=== PATIENT | male | born 1965 | race Caucasian/White ===

== ENCOUNTER → 2020-03-08 | Outpatient (CLI) | payer OTHER ==
--- NOTE | 2020-03-08 10:41 | PFTRPT ---
Visit Date: 03/08/2020 Second ID: [id number] Referring Doctor: Judy Mao Height: 72.00 Inches Weight: 239.00 Lbs BSA: 2.30 Diagnosis: J98.01 TECHNIQUE: Pre- and post-bronchodilator study of excellent technical quality. FINDINGS: Forced vital capacity is normal. FEV1 is in proportion of obstructive index; therefore, normal. Expiratory limit within the flow-volume loop is normal. No significant bronchodilator response identified. Total lung capacity normal. Residual volume is generally in proportion. Diffusing capacity is normal. Airway resistance and conductance are normal. No hemoglobin is available for correction. IMPRESSION: Essentially normal study. MTDD
== END ==
LOC: M CARPUL 09:57
PROVIDERS: ATTEND Registered Nurse
DX: J98.01 Acute bronchospasm (principal)

== ENCOUNTER → 2022-12-07 | Outpatient (CLI) | payer OTHER | LOC: M RAD 09:49 | PROVIDERS: ATTEND Physician Assistant | DX: Z87.891 Personal history of nicotine dependence (principal) ==

== ENCOUNTER → 2023-12-12 | Outpatient (CLI) | payer OTHER | LOC: M RAD 07:41 | PROVIDERS: ATTEND Physician Assistant | DX: Z87.891 Personal history of nicotine dependence (principal) ==